=== PATIENT | female | born 1960 | race Caucasian/White ===

== ENCOUNTER 2021-02-27 10:32 | Observation (INO) | payer OTHER ==
[~2021-02-27] VITALS: Ht 149.9 cm; Wt 85.7 kg
[~2021-02-27 10:32] MED LIST: ATORVASTATIN CA20 MG PO; BRILINTA 90 MG90 MG PO; CLEOCIN HCL300 MG PO; LIPITOR20 MG PO; NAPROSYN500 MG PO; NEURONTIN800 MG PO; NICOTINE PATCH1 EAC2 TD; NITROGLYCERIN0.4 MG SL; TOPROL XL25 MG PO; Viscous Lidocaine 2% TOP; ZANAFLEX4 MG PO
[2021-02-27 11:10] LABS: HEMOGLOBIN 13.3 gm/dl (12.3-15.3); RED BLOOD COUNT 4.34 M/UL (4.00-5.10); WHITE BLOOD COUNT 10.4 K/UL (4.5-11.0)
[2021-02-27 11:36] LABS: BUN/CREATININE RATIO 18 (0-10)
[2021-02-27] MEDS ORDERED: ATORVASTATIN CA40 MG PO (13:55)
[2021-02-27] MEDS ORDERED: HYDROCODON-ACE1 EAC2 PO (13:58)
[2021-02-27] MEDS ORDERED: LOPRESSOR 25 MG25 MG PO (14:00)
[2021-02-27] MEDS ORDERED: LANTUS SOL100 UNIT/1 SC (14:35)
[2021-02-27] MEDS ORDERED: NITROSTAT0.4 MG SL (14:39)
[2021-02-27] MEDS ORDERED: MOTRIN IB200 MG PO (14:43)
[2021-02-27] MEDS ORDERED: VOLTAREN ARTHRI20 GM TOP (14:44)
[2021-02-27] MEDS ORDERED: ASPIRIN EC81 MG PO (15:08)
[2021-02-27] MEDS ORDERED: METFORMIN HCL1000 MG PO (15:08)
[2021-02-28 03:26] LABS: HEMOGLOBIN 13.3 gm/dl (12.3-15.3); RED BLOOD COUNT 4.37 M/UL (4.00-5.10); WHITE BLOOD COUNT 9.7 K/UL (4.5-11.0)
[2021-02-28 03:54] LABS: BUN/CREATININE RATIO 24 (0-10)
[2021-03-08 17:09] LABS: AMPHETAMINE 24 ng/mL (.); AMPHETAMINES CONFIRMATION Positive (.); MDA Negative (.); MDEA Negative (.); MDMA Negative (.); METHAMPHETAMINE 399 ng/mL (.)
[2021-03-10 11:10] LABS: 6-ACETYLMORPHINE Negative (.); CODEINE Negative (.); DIHYDROCODEINE 2.2 ng/mL (.); HYDROCODONE 34.8 ng/mL (.); HYDROMORPHONE Negative (.); MORPHINE Negative (.); OPIATE CONFIRMATION Positive (.); OXYCODONE Negative (.); OXYCODONES CONFIRMATION Negative (.); OXYMORPHONE Negative (.)
[2021-03-11 11:11] LABS: CANNABIDIOL Negative (.); CANNABINOID CONFIRMATION Positive (.); CANNABINOL Negative (.); CARBOXY-THC 3.1 ng/mL (.); HYDROXY-THC Negative (.); TETRAHYDROCANNABINOL(THC) Negative (.)
== END 2021-02-28 11:25 | disposition home or self-care (01) ==
LOC: ER1 10:32 → CDU 12:13 → M/S 12:13
PROVIDERS: Internal Medicine; Physician Assistant Medical; ADMIT Internal Medicine
DX: R55 Syncope and collapse (principal); F19.90 Other psychoactive substance use, unspecified, uncomplicated; I25.10 Atherosclerotic heart disease of native coronary artery without angina pectoris; E11.42 Type 2 diabetes mellitus with diabetic polyneuropathy; I10 Essential (primary) hypertension; E78.5 Hyperlipidemia, unspecified; J44.9 Chronic obstructive pulmonary disease, unspecified; E66.01 Morbid (severe) obesity due to excess calories; J96.10 Chronic respiratory failure, unspecified whether with hypoxia or hypercapnia; F41.9 Anxiety disorder, unspecified; K21.9 Gastro-esophageal reflux disease without esophagitis; F17.210 Nicotine dependence, cigarettes, uncomplicated; Z68.37 Body mass index [BMI] 37.0-37.9, adult; Z91.19 Patient's noncompliance with other medical treatment and regimen; Z95.5 Presence of coronary angioplasty implant and graft; Z88.6 Allergy status to analgesic agent; Z88.5 Allergy status to narcotic agent; Z79.82 Long term (current) use of aspirin; Z79.891 Long term (current) use of opiate analgesic; Z79.84 Long term (current) use of oral hypoglycemic drugs; Z79.899 Other long term (current) drug therapy; Z20.822 Contact with and (suspected) exposure to COVID-19
CPT/HCPCS: ECHO; 36415; 70450; 70551; 71045; 80048; 80053; 80061; 80307; 81001; 82140; 82550; 82553; 82962; 83036; 83605; 83735; 83874; 84484; 85025; 85027; 85610; 85730; 93306; 93880; 95816; 97161; 97165; 99285; G0378; J7030; J7040; U0002

== ENCOUNTER 2022-05-21 01:33 | Emergency (ER) | payer OTHER ==
[~2022-05-21 01:33] MED LIST changes: +ASPIRIN EC81 MG PO; +ATORVASTATIN CA40 MG PO; +HYDROCODON-ACE1 EAC2 PO; +LANTUS SOL100 UNIT/1 SC; +LOPRESSOR 25 MG25 MG PO; +METFORMIN HCL1000 MG PO; +MOTRIN IB200 MG PO; +NITROSTAT0.4 MG SL; +VOLTAREN ARTHRI20 GM TOP
[2022-05-21 03:59] LABS: HEMOGLOBIN 10.2 gm/dl (12.3-15.3); RED BLOOD COUNT 3.61 M/UL (4.00-5.10); WHITE BLOOD COUNT 12.8 K/UL (4.5-11.0)
[2022-05-21 04:35] LABS: BUN/CREATININE RATIO 14 (0-10)
== END 2022-05-21 19:50 | disposition short-term general hospital (02) ==
LOC: ER1 01:33
PROVIDERS: Physician Assistant
DX: N15.1 Renal and perinephric abscess (principal); F17.210 Nicotine dependence, cigarettes, uncomplicated; I25.2 Old myocardial infarction; E11.9 Type 2 diabetes mellitus without complications; I48.91 Unspecified atrial fibrillation; Z20.822 Contact with and (suspected) exposure to COVID-19; J44.9 Chronic obstructive pulmonary disease, unspecified; Z79.4 Long term (current) use of insulin; Z95.5 Presence of coronary angioplasty implant and graft; Z88.6 Allergy status to analgesic agent; Z88.5 Allergy status to narcotic agent; Z79.82 Long term (current) use of aspirin
CPT/HCPCS: 0240U; 71045; 80053; 81001; 82550; 82553; 83690; 84484; 85025; 87040; 87086; 96365; 99285; J2185; Q9967